=== PATIENT | male | born 2000 ===

== ENCOUNTER 2023-09-23 20:07 | Emergency (ER) | payer OTHER, SELFPAY ==
[2023-09-23 20:17] VITALS: BP 144/83; PULSE 87; RESP 16; TEMP 36.9; O2SAT 98
--- NOTE | 2023-09-23 20:56 | CRLHL7_ITS ---
For Patients: As a result of the Cures Act, medical imaging exams and procedure reports are released immediately into your electronic medical record. You may view this report before your referring provider. If you have questions, please contact your health care provider. Indication: Trauma. Technique: Left foot, 3 views. Comparison: None. Findings/Impression: Bones: Alignment is normal. No displaced fractures or bone lesions. Joint spaces: Unremarkable. Soft tissues: No radiopaque foreign bodies. Dictated by Saroj Thomas MD @ 09/23/2023 9:27:58 PM (Electronically Signed)
--- NOTE | 2023-09-23 21:12 | ED_ITS ---
HPI - Wound/Laceration General Time Seen by Provider: 21:12 Date Seen: 09/23/23 Chief Complaint: Laceration/Wound Stated Complaint: stepped on a nail Time Seen by Provider: 09/23/23 20:56 Source: patient, RN notes reviewed and old records reviewed Mode of arrival: ambulatory Limitations: no limitations History of Present Illness HPI narrative: 22-year-old male who presents today after stepping on a nail. This occurred about 8 hours prior to coming the emergency department. He has not done anything with it. He has pain with bearing weight. Does not feel like there is anything in the foot. Related Data Home Medications ?Medication ?Instructions ?Recorded ?Confirmed No Known Home Medications 09/23/23 09/23/23 Allergies Allergy/AdvReac Type Severity Reaction Status Date / Time No Known Drug Allergies Allergy Verified 09/23/23 20:17 Exam Narrative: Exam Narrative: General: well nourished , NAD Head: Atraumatic and normocephalic ENT: External ears and external nose are normal Eyes: Conjunctiva clear, pupils are equal reactive, external ocular motions are intact Neck: Full spontaneous range of motion of the neck Lungs: No respiratory distress Musculoskeletal: Puncture wound on the plantar surface of the left foot just proximal to the 1st metatarsal head with mild surrounding swelling, no foreign body identified Neurologic: No gross focal neurologic deficits Skin: No rashes Psych: Mood and affect are appropriate Const: Vital Signs, click to edit/add: Vital Signs - 24 hr 09/23/23 20:17 Temperature 98.4 F Pulse Rate [Pulse Oximeter] 87 Respiratory Rate 16 Blood Pressure [Ri ght Upper Arm] 144/83 H Pulse Oximetry 98 Oxygen Delivery Me thod Room Air Course Course ED Course: Patient seen examined, presents today after stepping on a nail. Review of [place] immunization database shows patient is up-to-date on tetanus. X-ray of the foot is ordered, if no foreign body seen plan to discharge on antibiotics and with follow-up with Podiatry. Reevaluation(s) Time of Reevaluation #1: 21:26 Reevaluation #1: X-ray ordered and independently interpreted by me does not demonstrate any acute fracture or foreign body. Patient is stable for discharge with outpatient follow-up with Podiatry Orthopedics, will be started on Augmentin. Vital Signs Vital signs: Initial Vital Signs Temperature 98.4 F 09/23/23 20:17 Temperature Source Temporal Artery Scan 09/23/23 20:17 Pulse Rate 87 09/23/23 20:17 Pulse Rhythm Regular 09/23/23 20:17 Respiratory Rate 16 09/23/23 20:17 Blood Pressure 144/83 H 09/23/23 20:17 Blood Pressure Mean 103 09/23/23 20:17 Blood Pressure Position Sitting 09/23/23 20:17 Pulse Oximetry 98 09/23/23 20:17 Oxygen Delivery Method Room Air 09/23/23 20:17 Vital Signs Temperature 98.4 F 09/23/23 20:17 Pulse Rate 87 09/23/23 20:17 Respiratory Rate 16 09/23/23 20:17 Blood Pressure 144/83 H 09/23/23 20:17 Pulse Oximetry 98 09/23/23 20:17 Oxygen Delivery Method Room Air 09/23/23 20:17 Temperature 98.4 F 09/23/23 20:17 Pulse Rate 87 09/23/23 20:17 Respiratory Rate 16 09/23/23 20:17 Blood Pressure 144/83 H 09/23/23 20:17 Pulse Oximetry 98 09/23/23 20:17 Oxygen Delivery Method Room Air 09/23/23 20:17 Discharge Plan Discharge Clinical Impression: Puncture wound of foot Patient Disposition: Home, Self-Care Condition: Stable Instructions: Puncture Wound in the Foot (ED) Additional Instructions: Wash daily with soap and water Tylenol and ibuprofen as needed for pain Crutches with weight-bearing as tolerated Follow-up with podiatry ([facility] [phone]) or orthopedics ([facility] [phone]) Activity Level: Activity as Tolerated and Weight Bearing as Tolerated Discharge Diet: Regular Prescriptions: No Action No Known Home Medications Stand Alone Forms: MyHealth Info Instructions
== END 2023-09-23 22:05 | disposition home or self-care (01) ==
PROVIDERS: Emergency Provider Family Medicine
DX: S91.342A Puncture wound with foreign body, left foot, initial encounter (principal); W45.0XXA Nail entering through skin, initial encounter
CPT/HCPCS: 73630; 99283; 99284